=== PATIENT | male | born 1980 | race Caucasian/White ===

== ENCOUNTER 2017-07-17 18:47 | Emergency (ER) | payer BC ==
[~2017-07-17] VITALS: Ht 182.9 cm; Wt 134.4 kg
[~2017-07-17 18:47] MED LIST: AUGMENTIN875 MG PO; NAPROSYN500 MG PO
[2017-07-17 19:51] LABS: CHLORIDE 103 mEq/L (99-109); POTASSIUM 3.8 mEq/L (3.7-5.4); SODIUM 139 mEq/L (136-147)
[2017-07-17 19:52] LABS: GLUCOSE 98 mg/dL (70-99)
[2017-07-17 19:56] LABS: CREATININE 1.1 mg/dL (0.6-1.3); GFR ESTIMATE (CALCULATED) > 59 mL/min/ (58.99-99999)
[2017-07-17 19:57] LABS: UREA NITROGEN (BUN) 10 mg/dL (9-23)
[2017-07-17 22:17] LABS: HEMATOCRIT 47.1 % (38.0-50.0); HEMOGLOBIN 16.8 G/DL (12.5-16.6); MCH 30.7 PG (29.0-34.0); MCHC 35.7 G/DL (30.0-36.0); MCV 86.1 FL (86-99); NRBC (%) 0.2 /100 WBC (0-0); PLATELET COUNT 247 K/uL (156-360); RBC DIS.WIDTH-CV 12.2 % (11.8-14.6); RBC DIS.WIDTH-SD 38.4 % (39-53); RED BLOOD COUNT 5.47 M/uL (4.00-5.50); WHITE BLOOD COUNT 9.1 K/uL (4.1-10.2)
[2017-07-18] MEDS ORDERED: FLEXERIL10 MG PO (02:38)
[2017-07-18 02:54] VITALS: BP 105/57
== END 2017-07-18 03:11 | disposition home or self-care (01) ==
LOC: EME 18:47
DX: R42 Dizziness and giddiness (principal); M62.838 Other muscle spasm; D17.0 Benign lipomatous neoplasm of skin and subcutaneous tissue of head, face and neck; Z87.820 Personal history of traumatic brain injury; F17.200 Nicotine dependence, unspecified, uncomplicated
CPT/HCPCS: 70450; 72125; 80048; 85025; 85027; 93005; 99281; 99285